=== PATIENT | female | born 1965 | race Caucasian/White ===

== ENCOUNTER → 2019-05-06 | Outpatient (CLI) | payer OTHER ==
[~2019-05-06] MED LIST: ADIPEX PO; APRISO PO; APRISO0.375 GM PO; ARTHROTEC 75 MG PO; BALSALAZIDE; CANASA1000 MG INJ; FLEXERIL 10 MG; FLEXERIL PO; HUMIRA INJ; IMURAN; IMURAN50 MG PO; LIPITOR20 MG PO; LOMOTIL 2.5 MG; LOMOTIL TABLET1 EACH PO; LOTREL 10-20 M1 EACH; NORVASC PO; PROTONIX 40 MG; PROTONIX PO; PROVENTIL INHALER; SINGULAIR; ZYRTEC 10 MG; ZYRTEC PO
--- NOTE | 2019-05-06 22:22 | Diagnostic Imaging Report ---
MRI SPINE LUMBAR WO HISTORY: Low back pain COMPARISON: Lumbar spine MRI 05/31/2017; report from pelvic MRI dated 05/31/2017 TECHNIQUE: Sagittal T1, sagittal T2, sagittal STIR, axial T2, coronal T2, and axial proton density weighted images of the lumbar spine were obtained without contrast. DISCUSSION: Number of non-rib bearing lumbar vertebral bodies: 5. Alignment: Normal lordosis. No scoliosis. Vertebrae: No fractures, infection or neoplasm. T9, T12, and L2 vertebral body T1/T2 hyperintense hemangiomas are again noted. Conus medullaris: Normal, ends at L1-L2. Cauda equina: No masses or arachnoiditis. The cauda equina is slightly effaced at L4-L5. Posterior paraspinal muscles: Well preserved. No signal abnormalities. Soft tissues: Mildly prominent anterior epidural veins throughout the lumbar spine are suspected. Mild multilevel lumbar disc degeneration is present. T12-L1: Patent canal and foramina. L1-L2: Minimal disc bulge without significant canal or foraminal stenosis. L2-L3: Minimal disc bulge without significant canal or foraminal stenosis. L3-L4: Minimal disc bulge without significant canal or foraminal stenosis. L4-L5: Mild canal stenosis due to disc bulge and ligamentum flavum thickening; this is accentuated by epidural lipomatosis. Mild bilateral foraminal stenoses due to disc bulge and facet arthrosis. There is mild periarticular edema along the right L4-L5 facet joint. L5-S1: Mild bilateral foraminal stenoses due to disc bulge and facet arthrosis. No significant canal stenosis. Mild periarticular edema along the left L5-S1 facet joint is associated with a small posterior synovial cyst. Incidental findings: Diffuse rectosigmoid colonic wall thickening is partially visualized. IMPRESSION: 1. Mild multilevel lumbar disc degeneration. 2. Mild degenerative canal stenosis at L4-L5 is accentuated by epidural lipomatosis. The cauda equina is slightly effaced at L4-L5. 3. Mild bilateral degenerative foraminal stenoses at L4-L5 and L5-S1. 4. Possible mild right L4-L5 and left L5-S1 facet synovitis. 5. Partially visualized diffuse rectosigmoid colonic wall thickening is concerning for colitis. Further evaluation with CT of the abdomen and pelvis is recommended. Signed by: Dr. José Manuel Austin M.D. on 05/06/2019 10:19 PM
== END ==
LOC: MRI 16:33
PROVIDERS: ATTEND Internal Medicine
DX: M54.40 Lumbago with sciatica, unspecified side (principal)
CPT/HCPCS: 72148

== ENCOUNTER → 2019-06-04 | Day surgery (SDC) | payer OTHER ==
[2019-06-03 18:05] LABS: BASOPHILS # (AUTO) 0.1 (0.0-0.1); BASOPHILS % 0.7 % (0.0-1.0); EOSINOPHILS # (AUTO) 0.3 (0.0-0.4); HEMATOCRIT 44.8 % (34.2-44.1); HEMOGLOBIN 13.9 g/dL (12.0-16.0); LYMPHOCYTES # (AUTO) 1.5 (1.0-3.2); LYMPHOCYTES % 17.1 % (18.0-39.1); MEAN CORPUSCULAR HEMOGLOBIN 26.2 pg (28-32); MEAN CORPUSCULAR VOLUME 84.5 fL (81-99); MONOCYTES # (AUTO) 0.6 (0.2-0.8); MONOCYTES % 7.3 % (4.4-11.3); NEUTROPHILS # (AUTO) 6.1 (2.1-6.9); NEUTROPHILS % 70.4 % (38.7-80.0); PLATELET COUNT 459 x10e3/uL (140-360)
[~2019-06-04] MED LIST changes: +BENTYL PO; +BIOTIN2500 MCG PO; +CALCIUM PO; +DIGESTIVE ENZYMES PO; +IRON PO; +LIDOCAINE HCL 2% LOCAL INJ 5 ML SDV VIAL INJ ONE; +METOPROLOL SUCC25 MG PO; +MULTI-VITAMIN1 EACH PO; +PROBIOTICS PO; +PROPOFOL IV EMULSION 10 MG/ML 20 ML VIAL ONE; +VICTOZA 2-0.6 MG/0.1 INJ; +VITAMIN D3400 UNI1 PO
--- OUTSIDE RECORDS SUMMARY | 2019-06-04 06:07 | XMS REPORT ---
Author Author [facility] Address Unknown Phone Unavailable Care Team Providers Care Marine Oiler Name Role Phone ELE ARCE Unavailable Unavailable FILES, Dheeraj CARRASCO Unavailable Unavailable Problems This patient has no known problems. Allergies, Adverse Reactions, Alerts This patient has no known allergies or adverse reactions. Medications This patient has no known medications. Results Test Description Test Time Test Comments Text Results Atomic Results Result Comments MRI SPINE LUMBAR WO 2019-05-06 22:05:00 [facility] [address] [address] Patient Name: PREM MARQUES MR #: [id number] : 1965 Age/Sex: 54/F Req #: [id number] Adm Physician: Ordered by: ELE ARCE MD Report #: [id number] Location: MRI Room/Bed: Procedure: [id number] MRI/MRI SPINE LUMBAR WO Exam Date: Exam Time: REPORT STATUS: Signed MRI SPINE LUMBAR WO HISTORY: Low back pain COMPARISON: Lumb ar spine MRI 05/31/2017; report from pelvic MRI dated 05/31/2017 TECHNIQUE: Sagittal T1, sagittal T2, sagittal STIR, axial T2, coronal T2, and axial proton density weighted images of the lumbar spine were obtained without contrast. DISCUSSION: Number of non-rib bearing lumbar vertebral bodies: 5. Alignment: Normal lordosis. No scoliosis. Vertebrae: No fractures, infection or neoplasm. T9, T12, and L2 vertebral body T1/T2 hyperintense hemangiomas are again noted. Conus medullaris: Normal, ends at L1-L2. Cauda equina: No masses or arachnoiditis. The cauda equina is slightly effaced at L4-L5. Posterior paraspinal muscles: Well preserved. No signal abnormalities. Soft tissues: Mildly prominent anterior epidural veins throughout the lumbar spine are suspected. Mild multilevel lumbar disc degeneration is present. T12-L1: Patent canal and foramina. L1-L2: Minimal disc bulge without significant canal or foraminal stenosis. L2-L3: Minimal disc bulge without significant canal or foraminal stenosis. L3-L4: Minimal disc bulge without significant canal or foraminal stenosis. L4-L5: Mild canal stenosis due to disc bulge and ligamentum flavum thickening; this is accentuated by epidural lipomatosis. Mild bilateral foraminal stenoses due to disc bulge and facet arthrosis. There is mild periarticular edema along the right L4-L5 facet german int. L5-S1: Mild bilateral foraminal stenoses due to disc bulge and facet arthrosis. No significant canal stenosis. Mild periarticular edema along the left L5-S1 facet joint is associated with a small posterior synovial cyst. Incidental findings: Diffuse rectosigmoid colonic wall thickening is partially visualized. IMPRESSION: 1. Mild multilevel lumbar disc degeneration. 2. Mild degenerative canal stenosis at L4-L5 is accentuated by epidural lipomatosis. The cauda equina is slightly effaced at L4-L5. 3. Mild bilateral degenerative foraminal stenoses at L4-L5 and L5-S1. 4. Possible mild right L4-L5 and left L5-S1 facet synovitis. 5. Partially visualized diffuse rectosigmoid colonic wall thickening is concerning for colitis. Further evaluation with CT of the abdomen and pelvis is recommended. Signed by: Dr. José Manuel Austin M.D. on 05/06/2019 10:19 PM Dictated By: JOSÉ MANUEL AUSTIN MD 18 Transcribed By: DONALD on 05/06/192218 COPY TO: ELE ARCE MD MAMMOGRAPHY DIGITAL [address] [place] [address] Patient Name: PREM MARQUES MR #: [id number] : 1965 Age/Sex: 52/F Req #: [id number] Adm Physician: Ordered by: DANILO CURRIE MD Report #: [id number] Location: MAMMO Room/Bed: Procedure: [id number] MG/MAMMOGRAPHY DIGITAL SCR BILAT Exam Date: 09/18/17 Exam Time: 1403 REPORT STATUS: Signed #[id number] - [id number] #BILATERAL DIGITAL SCREENING MAMMOGRAM WITH CAD: 09/18/2017 CLINICAL: Routine screening. Comparison is made to exams dated: 06/13/2015 mammogram, 03/30/2013 mammogram and 03/19/2012 mammogram - [facility]. Current study contains 5 films. The tissue of both breasts is heterogeneously dense. This may lower the sensitivity of mammography. Current study was also evaluated with a Computer Aided Detection (CAD) system. There are benign calcifications in the right breast. There also is a benign calcification in the left breast. No significant masses, calcifications, or other findings are seen in either breast. There has been no significant interval change. IMPRESSION: BENIGN There is no mammographic evidence of malignancy. A 1 year screening mammogram is recommended. The patient will be notified by letter of the results. Brenda stock/jero:09/21/2017 13:12:49 Hide Trimmer: Rosalind ARELLANO(R)(M), [facility] letter sent: Compared to Prior B9 Mammogram BI- RADS: 2 Benign Dictated By: BRENDA SALGADO DO 1312 Transcribed By: JERO on 09/21/17 1312 COPY TO: DANILO CURRIE MD
[2019-06-04 09:20] VITALS: BP 136/91
--- NOTE | 2019-06-04 12:42 | Operative Report ---
DATE OF PROCEDURE: 06/04/2019 SURGEON: Marcus Najera MD PREOPERATIVE DIAGNOSIS: History of ulcerative colitis with diarrhea and blood in the stool. POSTOPERATIVE DIAGNOSIS: Incomplete examination secondary to solid stool throughout the rectum and sigmoid colon. There was evidence of some friability, but we were unable to evaluate the colon lining in the rectum and/or the sigmoid colon. We did not advance the scope beyond this region because of the excessive amount of stool. The colonoscope was withdrawn from the patient's rectum and the procedure was ended. At conclusion, we have incomplete examination secondary to the excessive amount of solid stool still in the colon. Marcus Najera MD SAF/MODL /[id number]
== END | disposition home or self-care (01) ==
LOC: OR 06:05
PROVIDERS: ATTEND Internal Medicine Gastroenterology
DX: K51.511 Left sided colitis with rectal bleeding (principal); K59.00 Constipation, unspecified; K21.0 Gastro-esophageal reflux disease with esophagitis; R03.0 Elevated blood-pressure reading, without diagnosis of hypertension; E78.6 Lipoprotein deficiency; M19.90 Unspecified osteoarthritis, unspecified site; R00.0 Tachycardia, unspecified; Z88.2 Allergy status to sulfonamides; Z01.810 Encounter for preprocedural cardiovascular examination; Z01.812 Encounter for preprocedural laboratory examination; Z68.36 Body mass index [BMI] 36.0-36.9, adult
CPT/HCPCS: 36415; 45378; 85025; 93005; J2001; J2704

== ENCOUNTER → 2019-08-13 | Day surgery (SDC) | payer OTHER ==
[~2019-08-13] MED LIST changes: +FENTANYL CITRATE/PF 100MCG/2 ML INJ ONE; +MIDAZOLAM HCL 2 MG/2 ML VIAL ONE; -PROPOFOL IV EMULSION 10 MG/ML 20 ML VIAL ONE; +PROPOFOL IV EMULSION 10 MG/ML 50 ML VIAL ONE
[2019-08-13 10:45] VITALS: BP 117/91
--- NOTE | 2019-08-13 17:40 | Operative Report ---
DATE OF PROCEDURE: 08/13/2019 SURGEON: Marcus Najera MD PROCEDURE PERFORMED: Colonoscopy. PREOPERATIVE DIAGNOSIS: Long history of left-sided ulcerative colitis, on medications. POSTOPERATIVE DIAGNOSIS: Left-sided ulcerative colitis, active and internal hemorrhoids. PREOPERATIVE MEDICATIONS: Consisted of IV sedation administered under MAC anesthesia. PROCEDURE IN DETAIL: Using an Jebbit video colonoscope was inserted in the patient's rectum and advanced up into the rectum, then through the colon to the cecum. The colon was studied from that level back down to the rectum, the cecum, the ascending colon, transverse colon, all appeared to be normal. Biopsies were obtained. As we rounded the splenic flexure, we began picking up severe inflammation with edema, erythema, and friability, which extended way down to the rectum. There are couple of pseudopolyps present. Biopsies were obtained in the ascending colon, transverse colon, again in the descending colon and sigmoid colon and rectum. The colonoscope was withdrawn from the patient's rectum and the procedure was ended. In conclusion, we have findings of left-sided ulcerative colitis. Internal hemorrhoids were also noted. Marcus Najera MD SAF/MODL /[id number]
== END | disposition home or self-care (01) ==
LOC: OR 07:17
PROVIDERS: ATTEND Internal Medicine Gastroenterology
DX: K51.511 Left sided colitis with rectal bleeding (principal); K51.518 Left sided colitis with other complication; K63.5 Polyp of colon; K64.8 Other hemorrhoids; K21.0 Gastro-esophageal reflux disease with esophagitis; E78.5 Hyperlipidemia, unspecified; I10 Essential (primary) hypertension; E11.9 Type 2 diabetes mellitus without complications; Z88.2 Allergy status to sulfonamides; Z80.0 Family history of malignant neoplasm of digestive organs
CPT/HCPCS: 36415; 45380; 82948; J2001; J2250; J2704; J3010; 45378

== ENCOUNTER → 2019-09-21 | Outpatient (CLI) | payer OTHER ==
[~2019-09-21] MED LIST changes: -FENTANYL CITRATE/PF 100MCG/2 ML INJ ONE; -LIDOCAINE HCL 2% LOCAL INJ 5 ML SDV VIAL INJ ONE; -MIDAZOLAM HCL 2 MG/2 ML VIAL ONE; -PROPOFOL IV EMULSION 10 MG/ML 50 ML VIAL ONE
== END ==
LOC: MAMMO 13:35
PROVIDERS: ATTEND Obstetrics & Gynecology
DX: Z12.31 Encounter for screening mammogram for malignant neoplasm of breast (principal)
CPT/HCPCS: 77067

== ENCOUNTER → 2021-12-06 | Outpatient (CLI) | payer OTHER | LOC: RAD 15:55 | PROVIDERS: ATTEND Internal Medicine Gastroenterology | DX: K51.80 Other ulcerative colitis without complications (principal) | CPT/HCPCS: 74018 ==

== ENCOUNTER → 2022-01-17 | Outpatient (CLI) | payer OTHER ==
[~2022-01-17] MED LIST changes: +AMLODIPINE BESYL5 MG PO; +ARTHROTEC EC 71 EACH PO; +PHENTERMINE H37.5 MG PO; +RYBELSUS7 MG PO; +SINGULAIR10 MG PO
== END ==
LOC: OR 08:20 → LAB 08:20 → EDSTATUS 09:00
PROVIDERS: ATTEND Internal Medicine Gastroenterology
DX: K51.90 Ulcerative colitis, unspecified, without complications (principal); K59.00 Constipation, unspecified; Z01.810 Encounter for preprocedural cardiovascular examination; Z01.812 Encounter for preprocedural laboratory examination; Z20.822 Contact with and (suspected) exposure to COVID-19; Z53.8 Procedure and treatment not carried out for other reasons
CPT/HCPCS: 36415; 82948; 93005; U0002

== ENCOUNTER → 2022-01-18 | Day surgery (SDC) | payer OTHER ==
[~2022-01-18] MED LIST changes: +FENTANYL CITRATE/PF 100MCG/2 ML INJ ONE; +GLUCAGON FOR INJ 1 MG VIAL ONE; +HYOSCYAMINE SULFATE 0.5 MG/ML INJ ONE; +LIDOCAINE HCL 2% LOCAL INJ 5 ML SDV VIAL INJ ONE; +METHYLPREDNISOLONE SOD SUCC 125 MG/2ML VIAL ONE; +MIDAZOLAM HCL 2 MG/2 ML VIAL ONE; +PROPOFOL IV EMULSION 10 MG/ML 20 ML VIAL ONE
[2022-01-18 14:57] VITALS: BP 110/86
[2022-01-18 15:26] LABS: BASOPHILS # (AUTO) 0.1 (0.0-0.1); BASOPHILS % 0.6 % (0.0-1.0); EOSINOPHILS # (AUTO) 0.2 (0.0-0.4); HEMATOCRIT 43.2 % (34.2-44.1); HEMOGLOBIN 13.9 g/dL (12.0-16.0); LYMPHOCYTES # (AUTO) 1.6 (1.0-3.2); LYMPHOCYTES % 11.2 % (18.0-39.1); MEAN CORPUSCULAR HEMOGLOBIN 27.7 pg (28-32); MEAN CORPUSCULAR HGB CONC 32.2 g/dL (31-35); MEAN CORPUSCULAR VOLUME 86.1 fL (81-99); MONOCYTES % 6.9 % (4.4-11.3); NEUTROPHILS # (AUTO) 11.5 (2.1-6.9); NEUTROPHILS % 79.9 % (38.7-80.0); PLATELET COUNT 444 x10e3/uL (140-360); RED BLOOD COUNT 5.02 x10e6/uL (3.6-5.1); RED CELL DISTRIBUTION WIDTH 12.6 % (11.7-14.4)
[2022-01-18 15:47] LABS: ALBUMIN 3.2 g/dL (3.5-5.0); ALBUMIN/GLOBULIN RATIO 0.8 (0.8-2.0); ANION GAP 11.1 mmol/L (8-16); CALCIUM 9.1 mg/dL (8.4-10.2); CREATININE, SERUM 0.91 mg/dL (0.57-1.11); POTASSIUM 3.1 mmol/L (3.5-5.1)
== END | disposition home or self-care (01) ==
LOC: OR 13:04
PROVIDERS: ATTEND Internal Medicine Gastroenterology
DX: K51.90 Ulcerative colitis, unspecified, without complications (principal); K63.5 Polyp of colon; K51.20 Ulcerative (chronic) proctitis without complications; K59.00 Constipation, unspecified; K64.8 Other hemorrhoids; K21.9 Gastro-esophageal reflux disease without esophagitis; G47.33 Obstructive sleep apnea (adult) (pediatric); I10 Essential (primary) hypertension; E11.9 Type 2 diabetes mellitus without complications; J45.909 Unspecified asthma, uncomplicated; Z88.2 Allergy status to sulfonamides; Z79.899 Other long term (current) drug therapy; Z86.711 Personal history of pulmonary embolism; Z86.718 Personal history of other venous thrombosis and embolism
CPT/HCPCS: 36415; 45380; 45385; 80053; 82948; 85025; 86141; J1610; J1980; J2001; J2250; J2704; J2930; J3010; 45378